=== PATIENT | male | born 1960 | race Native Hawaiian/Other Pacific Islander ===

== ENCOUNTER 2016-12-10 10:07 | Outpatient (CLI) | payer OTHER | END 2016-12-10 19:21 | disposition home or self-care (01) | LOC: RAD 10:07 | DX: M79.672 Pain in left foot (principal) ==

== ENCOUNTER 2017-01-14 11:26 | Outpatient (CLI) | payer OTHER | END 2017-01-14 19:34 | disposition home or self-care (01) | LOC: RAD 11:26 | DX: M25.561 Pain in right knee (principal); M79.671 Pain in right foot ==

== ENCOUNTER 2021-04-30 08:26 | Outpatient (CLI) | payer OTHER | END 2021-04-30 19:33 | disposition home or self-care (01) | LOC: CT 08:26 | PROVIDERS: ATTEND Physician Assistant | DX: I25.10 Atherosclerotic heart disease of native coronary artery without angina pectoris (principal); E78.49 Other hyperlipidemia; I10 Essential (primary) hypertension; M54.89 Other dorsalgia; Z95.2 Presence of prosthetic heart valve; E11.9 Type 2 diabetes mellitus without complications; R10.11 Right upper quadrant pain | CPT/HCPCS: 36415; 82565; 84520; Q9963 ==

== ENCOUNTER 2021-12-10 10:09 | Outpatient (CLI) | payer OTHER | END 2021-12-10 19:28 | disposition home or self-care (01) | LOC: US 10:09 | PROVIDERS: ATTEND Physician Assistant | DX: R10.11 Right upper quadrant pain (principal) ==

== ENCOUNTER 2022-02-17 07:32 | Outpatient (CLI) | payer OTHER | END 2022-02-17 18:54 | disposition home or self-care (01) | LOC: NM 07:32 | PROVIDERS: ATTEND Physician Assistant | DX: R10.11 Right upper quadrant pain (principal) | CPT/HCPCS: A9537 ==